=== PATIENT | male | born 1980 | race Caucasian/White ===

== ENCOUNTER 2025-04-15 16:49 | Emergency (ER) | payer OTHER, SELFPAY ==
[2025-04-15 17:00] VITALS: BP 150/92; PULSE 93; RESP 18; TEMP 36.3; O2SAT 97
--- OUTSIDE RECORDS SUMMARY | 2025-04-15 17:02 | XMS_ITS | Patient Health Record ---
Author Organization [facility] Address [address] [place], [place] [id number] Care Team Providers Care Rags Laborer Name Role Phone VANCE Valerio Unavailable [phone] Reason For Referral No Information Medications Medication SIG (Take, Route, Frequency, Duration) Notes Start Date End Date Status ibuprofen 200 MG Oral Tablet [Motrin] ORAL ibuprofen 200 MG Oral Tablet [Motrin]Original Medicationibuprofen 200 MG Oral Tablet [Motrin] *Reorder from [employer] for eRx and Interaction Alerts* 10/02/2017 Active Social History Social History Additional Details Category Social Info Options Details Migrated Social History Migrated Social History Alcohol intake : , History of tobacco use : Current every day smoker , Smoking Status : Current every day smoker Plan Of Treatment No Information Insurance Providers Payer Name Payer Address Payer Phone Subscriber Number Group Number Insured Name Patient Relationship to Insured Coverage Start Date Coverage End Date [facility] [address] [place] [phone] [id number] ANTONETTE SANTIAGO Self - patient is the insured
--- OUTSIDE RECORDS SUMMARY | 2025-04-15 17:02 | XMS_ITS | Clinical Summary ---
Author Organization [facility] Address [address] [place] [id number] Care Team Providers Care Building Maintenance Engineer Name Role Phone July Sullivan MD Unavailable [phone] Jessica Machado NP Primary Care Provider [phone] Allergies No known active allergies Medications acetaminophen (TYLENOL) 500 mg tablet Take 500 mg by mouth every 6 (six) hours as needed for pain Active ibuprofen (ADVIL,MOTRIN) 800 mg tablet Take 800 mg by mouth every 6 (six) hours as needed for pain Active valsartan (DIOVAN) 80 mg tabletIndications :Essential hypertension Take 1 tablet (80 mg total) by mouth daily 30 tablet 11 10/01/2019 Active amLODIPine (NORVASC) 10 mg tabletIndications :Hypertension, essential TAKE 1 TABLET(10 MG) BY MOUTH DAILY 30 tablet 01/29/2020 Active Active Problems Problem Noted Date Diagnosed Date Hypertension, essential 05/15/2019 Lumbago 07/21/2016 Surgical History Surgery Date Site/Laterality Comments KNEE ARTHROSCOPY W/ MEDIAL COLLATERAL LIGAMENT (MCL) REPAIR 2007, 2009, 2011 Right SHOULDER SURGERY 06/12/2012 - 06/11/2013 Left SPINAL FUSION L4/L5 NERVE REPAIR 2010 ? Left Left arm Medical History Medical History Date Comments Hx of spinal fusion Insomnia Chronic joint pain Chronic fatigue Achilles tendon pain Right side Knee pain Both knees Nerve damage Left arm Bilateral shoulder pain Family History Medical History Relation Name Comments Hypertension Father Relation Name Status Comments Father Alive Mother Alive Social History Tobacco Use Types Packs/Day Years Used Date Smoking Tobacco: Former Cigarettes 1 07/16/1998 - 09/13/2018 Alcohol Use Standard Drinks/Week Comments Yes 0 (1 standard drink = 0.6 oz pur e alcohol) twice weekly AUDIT-C Answer Date Recorded Frequency of Alcohol Consumption Not on file 05/15/2019 Average Number of Drinks Not on file 019 Frequency of Binge Drinking Weekly 09/2018 PHQ-2 Answer Date Recorded PHQ-2 Total Score (If total score is 3 or more points, staff should administer the PHQ-9) 0 10/01/2019 Exercise Vital Sign Answer Date Recorde d Days of Exercise per Week 0 days 2018 Minutes of Exercise per Session Not on file 05/15/2019 Sex and Gender Information Value Date Recorded Sex Assigned at Not on file Legal Sex Male 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 Gender Identity Not on file Sexual Orientation Not on file Occupation Industry Job Start Date 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 Not on file Not on file Not on kareem e Last Filed Vital Signs Vital Sign Reading Time Taken Comments Blood Pressure 162/84 10/01/2019 7:49 AM CDT Pulse 85 10/01/2019 7:49 AM CDT Temperature 36.7 C (98.1 F) 10/01/2019 7:49 AM CDT Respiratory Rate 18 10/01/2019 7:49 AM CDT Oxygen Saturation 98% 10/01/2019 7:49 AM CDT Inhaled Oxygen Concentration - - Weight 144.7 kg (319 lb) 10/01/2019 7:49 AM CDT Height 180.8 cm (5' 11.2) 10/01/2019 7:49 AM CD T Body Mass Index 44.24 10/01/2019 7:49 AM CDT Plan of Treatment Not on file Insurance [facility] Care Teams Building Maintenance Engineer Relationship Specialty Start Date End Date Jessica Machado REVENUE INVESTIGATOR [address] [place] [address] PCP - General Competitive Athlete 04/11/22 July Sullivan MD [address] [place] [address] Consulting Physician Family Medicine 05/13/19
--- OUTSIDE RECORDS SUMMARY | 2025-04-15 17:02 | XMS_ITS | Clinical Summary ---
Author Organization [facility] Address [address] [place] [address] Care Team Providers Care Agriculture Research Director Name Role Phone Unavailable Primary Care Provider Unavailabl e Allergies No known active allergies Medications levothyroxine 25 MCG tabletIndication s:Hypothyroidism , unspecified type Take 1 tablet (25 mcg total) by mouth every morning. 90 tablet 12/15/2021 Active pregabalin (LYRICA) 75 MG capsuleIndicatio ns:Chronic pain of both knees,Chronic bilateral low back pain without sciatica,Chronic pain of both shoulders,Chroni c pain syndrome Take 1 capsule (75 mg total) by mouth 2 (two) times daily. 60 capsule 12/15/2021 Active Phentermine HCl 30 MG CapIndications:C lass 3 severe obesity due to excess calories without serious comorbidity with body mass index (BMI) of 45.0 to 49.9 in adult ([facility]) Take 1 tablet by mouth every morning before breakfast. 30 capsule 12/22/2021 Active traMADol (ULTRAM) 50 MG tabletIndication s:Chronic Pain Take 1 tablet (50 mg total) by mouth every 6 (six) hours as needed for Pain. Indications: Chronic Pain 60 tablet 03/01/2022 Active metFORMIN (GLUCOPHAGE) 500 MG tabletIndication s:Class 3 severe obesity due to excess calories without serious comorbidity with body mass index (BMI) of 45.0 to 49.9 in adult ([facility]) Take 1 tablet (500 mg total) by mouth daily with breakfast. 90 tablet 1 03/01/2022 Active omeprazole (PRILOSEC) 40 MG capsuleIndicatio ns:Gastroesophag eal reflux disease without esophagitis TAKE 1 CAPSULE(40 MG) BY MOUTH DAILY 30 capsule 2 03/10/2022 Active lisinopril-hydro CHLOROthiazide (ZESTORETIC) 20-12.5 MG tabletIndication s:Hypertension, essential TAKE 1 TABLET BY MOUTH DAILY 90 tablet 1 03/17/2022 Active celecoxib (CELEBREX) 100 MG capsuleIndicatio ns:Achilles tendinitis of both lower extremities TAKE 1 CAPSULE(100 MG) BY MOUTH TWICE DAILY 60 capsule 2 03/28/2022 Active colchicine 0.6 MG tabletIndication s:Acute gout of left foot, unspecified cause Take 1.2 mg now and then take 0.6 mg in one hour. 3 tablet 2 07/19/2022 Active Active Problems Problem Noted Date Diagnosed Date Hypertension, essential 05/15/2019 Immunizations Immunization Administration Dates Next Due Influenza Adult (Generic) 05/01/2020 MODERNA COVID-19 (12+) MRNA, LNP-S, PF, 100 MCG/ 0.5 ML DOSE 01/30/2021,01/01/2021 Family History Medical History Relation Comments Hypertension Father Hypertension Mother Relation Status Comments Father Mother Social History Tobacco Use Types Packs/Day Years Used Date Smoking Tobacco: Former Cigarettes 1 20 0 06/12/1996 - 06/12/2016 Smokeless Tobacco: Never Tobacco Cessation:Counseling Given: No Alcohol Use Standard Drinks/Week Comments Yes 2 (1 standard drink = 0.6 oz pur e alcohol) Daily PHQ-2 Answer Date Recorded PHQ-2 Score - If the patient scores above 3, please move on to questions 3-9 0 05/20/2021 Sex and Gender Information Value Date Recorded Sex Assigned at Not on file Legal Sex Male 4:24 PM CDT Gender Identity Not on file Sexual Orientation Not on file Last Filed Vital Signs Vital Sign Reading Time Taken Comments Blood Pressure 159/94 03/01/2022 1:50 PM CDT Pulse 87 03/01/2022 1:50 PM CDT Temperature 36.5 C (97.7 F) 03/01/2022 1:50 PM CDT Respiratory Rate 20 03/01/2022 1:50 PM CDT Oxygen Saturation 95% 03/01/2022 1:50 PM CDT Inhaled Oxygen Concentration - - Weight 149.3 kg (329 lb 3.2 oz) 03/01/2022 1:50 PM CDT Height 181.6 cm (5' 11.5) 03/01/2022 1:50 PM CD T Body Mass Index 45.27 03/01/2022 1:50 PM CDT Plan of Treatment Health Maintenance Due Date Last Done Comments Colorectal Cancer Screening Colonoscopy (10 Years) 1979 Hepatitis C 12/13/1997 DTaP, Tdap and Td Vaccines ( 1 - Tdap) 12/13/1998 Hepatitis B Vaccines (1 of 3 - 19+ 3-dose series) 12/13/1998 HPV Vaccines (1 - 3-dose SCD M series) 12/13/2006 Annual Physical 05/20/2022 05/20/2021 COVID-19 Vaccine (3 - 2024-2 6 season) 2025 01/30/2021, 01/01/2021 Influenza Adult (#1) 2025 05/01/2020 Hepatitis A Vaccines Aged Out No long er eligible based on patient's age to complete this topic Meningococcal B Vaccine Aged Out No l onger eligible based on patient's age to complete this topic Meningococcal Vaccine Aged Out No daylin staci eligible based on patient's age to complete this topic Pneumococcal Vaccine: Pediatrics (0 to 5 Years) and At-Risk Patients (6 to 49 Years) Aged Out No longer eligible b ased on patient's age to complete this topic RSV Immunizations Under 20 Months Aged Out No longer eligible b ased on patient's age to complete this topic Insurance
[2025-04-15 17:20] LABS: EDSTREPNEGPOS1 Negative (Negative)
--- NOTE | 2025-04-15 17:20 | ED_ITS ---
HPI - General Adult General Chief complaint: Upper Respiratory Infection Stated complaint: Upper Respiratory Infection Source: patient Mode of arrival: ambulatory Limitations: no limitations History of Present Illness HPI narrative: Patient presents for evaluation of sick symptoms for last five days. He reports sinus congestion, cough, sore throat, bilateral ear pain and feeling lightheaded. No fever, vomiting or diarrhea. No recent sick contacts. He has been taking mucinex DM and tylenol for his symptoms. He smokes 1 ppd. Related Data Allergies Allergy/AdvReac Type Severity Reaction Status Date / Time No Known Allergies Allergy Verified 04/15/25 16:58 Review of Systems Review of Systems: CONSTITUTIONAL: Denies fever, chills, or sweats. EYES: Denies visual changes, redness, or discharge. ENT: Reports sinus congestion, sore throat, bilateral ear pain. CARDIOVASCULAR: Denies chest pain, palpitations, or edema. RESPIRATORY: Reports cough. Denies dyspnea. GASTROINTESTINAL: Denies abdominal pain, nausea, vomiting, or diarrhea. GENITOURINARY: Denies dysuria or hematuria. SKIN: Denies rash or itching. MUSCULOSKELETAL: Denies back pain, joint pain, or myalgia. NEUROLOGIC: Reports lightheadedness. Denies headache, numbness, dizziness, or w eakness. PSYCHIATRIC: Denies anxiety or depression. [facility] Past Medical History Medical History Fusion of spine GERD (gastroesophageal reflux disease) HTN (hypertension) Prediabetes Surgical History Surgical History H/O rotator cuff surgery H/O elbow surgery H/O hand surgery Family History Family History Mother Family history non-contributory Social History Social History Smoking packs per day: 1 Smoking cigarettes per day: 20.0 Tobacco type: cigarettes Living arrangements: with family Gender identity (if verbalized by the patient): Male Spiritual care concerns: No Exam Narrative: GENERAL: Well-appearing, well-nourished, and in no acute distress. HEAD: Normocephalic, atraumatic. EYES: PERRLA and EOMI. ENT: Nares clear, no rhinorrhea or epistaxis. Mucous membranes moist. Oropharynx without tonsillar hypertrophy exudate or other lesions. Bilateral TMs erythematous NECK: Supple. No adenopathy or masses. No carotid bruits or JVD CHEST: Clear to auscultation. No respiratory distress. No wheezes rales or rhonchi HEART: Regular rate and rhythm. No murmur heard. Normal peripheral pulses. ABDOMEN: Soft, nontender, nondistended, normal active bowel sounds. EXTREMITIES: Normal range of motion. No edema. SKIN: Warm, dry, no rash. NEURO: No focal deficits. Alert and oriented x3. PSYCH: Normal mood and affect. Course Course Emergency Course: This is a 44-year-old male who presented for evaluation of sick symptoms. his strep today was negative. Will send throat culture. He has evidence of otitis media on exam. He meets criteria for bacterial sinusitis based upon mucopurulent nature of discharge. Will DC with Augmentin. Follow-up with primary provider. Go to the ER for worsening symptoms. Patient in agreement with plan of care. Level of Care: Express Care Visit Vital Signs Vital signs: Vital Signs Temperature 36.3 C L 04/15/25 17:00 Pulse Rate 93 04/15/25 17:00 Respiratory Rate 18 04/15/25 17:00 Blood Pressure 150/92 H 04/15/25 17:00 Pulse Oximetry 97 04/15/25 17:00 Oxygen Delivery Room Air 04/15/25 17:00 Temperature 36.3 C L 04/15/25 17:00 Pulse Rate 93 04/15/25 17:00 Respiratory Rate 18 04/15/25 17:00 Blood Pressure 150/92 H 04/15/25 17:00 Pulse Oximetry 97 04/15/25 17:00 Oxygen Delivery Room Air 04/15/25 17:00 Medical Decision Making Vital Signs Vital Signs: Vital Signs Temperature 36.3 C L 04/15/25 17:00 Pulse Rate 93 04/15/25 17:00 Respiratory Rate 18 04/15/25 17:00 Blood Pressure 150/92 H 04/15/25 17:00 Pulse Oximetry 97 04/15/25 17:00 Oxygen Delivery Room Air 04/15/25 17:00 Temperature 36.3 C L 04/15/25 17:00 Pulse Rate 93 04/15/25 17:00 Respiratory Rate 18 04/15/25 17:00 Blood Pressure 150/92 H 04/15/25 17:00 Pulse Oximetry 97 04/15/25 17:00 Oxygen Delivery Room Air 04/15/25 17:00 Lab Data Labs: Lab Results 04/15/25 Range/Units 17:17 POC Grp A Strep Screen Negative (Negative) Discharge Plan Discharge Clinical Impression: Otitis media, Sinusitis Patient Disposition: Home Condition: Stable Instructions: Antibiotic Form, Sinusitis (ED), Ear Infection (GEN) Patient Language: Slovenian Prescriptions: New amoxicillin-pot clavulanate 875-125 mg tablet 1 tablet PO Q12H Qty: 20 0RF Follow-up/Referrals: [facility] [Primary Care Provider, Medical] Time of Disposition: 17:33
== END 2025-04-15 17:34 | disposition home or self-care (01) ==
PROVIDERS: Emergency Provider Nurse Practitioner
DX: H66.90 Otitis media, unspecified, unspecified ear (principal); J32.9 Chronic sinusitis, unspecified; I10 Essential (primary) hypertension; F17.210 Nicotine dependence, cigarettes, uncomplicated
CPT/HCPCS: 87081; 87880; 99203; G0463